=== PATIENT | male | born 1960 | race African-American/Black ===

== ENCOUNTER → 2016-11-25 | Outpatient (CLI) | payer MEDICAID ==
[2015-03-30 11:30] VITALS: BP 143/89
[~2016-11-25] MED LIST: AMLO5TAB2 PO; LEVE500T56 PO; hypertension med
--- NOTE | 2016-11-25 14:40 | KCIC ---
MRI right knee without contrast Indication: Right knee injury with recent fall and pain. Multiplanar multi sequence imaging of the right knee was performed without contrast. There is a small joint effusion. The marrow signal intensity is unremarkable. No geographic marrow lesion or bone bruise is detected. The ACL and PCL are intact. The lateral collateral ligament complex appears intact. There is significant thickening and increased signal associated with the medial collateral ligament complex. No definite complete rupture or retraction is seen. Findings are consistent with an MCL sprain. The medial and lateral menisci appear intact. No tear or displaced meniscal fragment is seen. The extensor mechanism is unremarkable. The articular cartilage appears intact. Impression: Small joint effusion and MCL sprain. No other significant abnormality is detected. Electronically signed by: Solo Patel MD (Nov 25, 2016 14:38:43)
== END | disposition home or self-care (01) ==
LOC: KCIC MRI 10:51
PROVIDERS: ATTEND Physician Assistant
DX: S89.91XA Unspecified injury of right lower leg, initial encounter (principal); W19.XXXA Unspecified fall, initial encounter; Y93.89 Activity, other specified; Y92.89 Other specified places as the place of occurrence of the external cause; Y99.8 Other external cause status
CPT/HCPCS: 73721